=== PATIENT | male | born 1945 | race Caucasian/White ===

== ENCOUNTER 2018-09-11 20:27 | Inpatient (IN) | payer MEDICARE ==
[~2018-09-11] VITALS: Ht 177.8 cm; Wt 85.7 kg
[2018-09-11] MEDS ORDERED: SODIUM CHLORIDE 0.9% 500 ML IV ONE (21:14)
[2018-09-11] MEDS ORDERED: MORPHINE SULFATE 4 MG/ML CPJ (NOT FOR IM USE) IV ONE (21:15)
[2018-09-11] MEDS ORDERED: ONDANSETRON HCL 4MG/2ML INJ IV ONE (21:15)
[2018-09-11 21:21] LABS: BASOPHILS % 0.5 % (0.0-2.0); EOSINOPHILS % 1.2 % (0.0-5.0); HEMATOCRIT. 31.8 % (42.0-52.0); HEMOGLOBIN. 11.1 g/dL (14.0-18.0); LYMPHOCYTES % 8.7 % (20.0-50.0); MEAN CORPUSCULAR HEMOGLOBIN 32.1 pg (28.0-32.0); MEAN PLATELET VOLUME 8.1 fl (7.4-10.4); NEUTROPHILS % 87.6 % (40.0-76.0); PLATELET 123 x1000/uL (130-400); RED BLOOD CELL COUNT 3.46 mill/uL (4.7-6.1); RED CELL DISTRIBUTION WIDTH 12.6 % (11.6-14.6)
[2018-09-11 21:25] LABS: CHLORIDE 103 mEq/L (98-107)
[2018-09-11 21:30] LABS: INR 1.1; PARTIAL THROMBOPLASTIN TIME 27.2 sec (23.4-31.0); PROTHROMBIN TIME 10.9 sec (9.6-11.0)
[2018-09-11 22:43] LABS: CLARITY URINE CLEAR (CLEAR); COLOR URINE YELLOW (YELLOW); KETONES URINE NEGATIVE (NEGATIVE); LEUKOCYTE ESTERASE URINE NEGATIVE (NEGATIVE); NITRITE URINE NEGATIVE (NEGATIVE); OCCULT BLOOD URINE NEGATIVE (NEGATIVE); PROTEIN URINE 2+ (NEGATIVE); SPECIFIC GRAVITY URINE 1.016 (1.005-1.030); UROBILINOGEN URINE 0.2 E.U./dL (0.2-1.0)
[2018-09-12 01:20] VITALS: BP 154/68
[2018-09-12 04:00] VITALS: BP 158/65
[2018-09-12 08:00] VITALS: BP 147/55
[2018-09-12] MEDS ORDERED: ENOXAPARIN 40MG/0.4ML SYR SUBCUT SCH (08:00)
[2018-09-12] MEDS ORDERED: SODIUM CHLORIDE 0.9% 1,000 ML IV SCH (08:33)
[2018-09-12] MEDS ORDERED: CLONIDINE 0.1MG TABLET PO PRN (08:45)
[2018-09-12] MEDS ORDERED: ONDANSETRON HCL 4MG/2ML INJ IV PRN (08:45)
[2018-09-12] MEDS ORDERED: DOCUSATE SODIUM 100MG CAPSULE PO PRN (08:45)
[2018-09-12] MEDS ORDERED: LORAZEPAM 0.5MG TABLET PO PRN (08:45)
[2018-09-12] MEDS ORDERED: HYDROCODONE/ACETAMINOPHEN 5/325MG TABLET PO PRN (08:45)
[2018-09-12] MEDS ORDERED: IPRATROPIUM/ALBUTEROL 0.5-3(2.5)MG/3ML NEB INH PRN (08:45)
[2018-09-12] MEDS ORDERED: ACETAMINOPHEN 325MG TABLET PO PRN (08:45)
[2018-09-12] MEDS ORDERED: FOLIC ACID 1MG TABLET PO SCH (09:00)
[2018-09-12] MEDS ORDERED: LOSARTAN POTASSIUM 50 MG TABLET PO SCH (11:00)
[2018-09-12 11:06] LABS: BASOPHILS % 0.8 % (0.0-2.0); EOSINOPHILS % 3.8 % (0.0-5.0); HEMATOCRIT. 29.3 % (42.0-52.0); HEMOGLOBIN. 10.2 g/dL (14.0-18.0); MEAN CORPUSCULAR HEMOGLOBIN 32.1 pg (28.0-32.0); MEAN CORPUSCULAR VOLUME 92.3 fL (80.0-94.0); MEAN PLATELET VOLUME 8.2 fl (7.4-10.4); MONOCYTES % 7.9 % (2.0-8.0); NEUTROPHILS % 48.5 % (40.0-76.0); PLATELET 119 x1000/uL (130-400); RED BLOOD CELL COUNT 3.17 mill/uL (4.7-6.1); RED CELL DISTRIBUTION WIDTH 12.8 % (11.6-14.6)
[2018-09-12 11:18] LABS: CREATINE KINASE 79 IU/L (39-308)
[2018-09-12 11:19] LABS: CREATINE KINASE MB FRACTION 1.6 ng/mL (0.5-3.6)
[2018-09-12 11:44] LABS: CHLORIDE 103 mEq/L (98-107)
[2018-09-12 11:52] LABS: LDL CHOLESTEROL 39 mg/dL (5-100)
[2018-09-12 11:54] LABS: HDL CHOLESTEROL 49 mg/dL (40-59)
[2018-09-12 12:00] VITALS: BP 149/85
[2018-09-12 13:14] VITALS: BP 149/85
[2018-09-12 14:11] LABS: *AMPHETAMINES SCREEN URINE NEGATIVE (NEGATIVE); *BARBITURATES SCREEN URINE NEGATIVE (NEGATIVE); *BENZODIAZEPINES SCREEN URINE NEGATIVE (NEGATIVE); *COCAINE SCREEN URINE NEGATIVE (NEGATIVE); CANNABINOID URINE SCREEN NEGATIVE (NEGATIVE); PHENCYCLIDINE URINE SCREEN NEGATIVE (NEGATIVE)
[2018-09-12 14:12] LABS: METHADONE URINE SCREEN NEGATIVE (NEGATIVE); OPIATES URINE SCREEN NEGATIVE (NEGATIVE)
== END 2018-09-12 15:36 | disposition home or self-care (01) | DRG 315 ==
LOC: ER 20:27 → EDBEDREQ 23:07 → EDBEDREQTM 23:07 → ENRESERV 23:34 → 8WST 09-12 00:34
PROVIDERS: ADMIT Internal Medicine; ATTEND Internal Medicine
DX: I95.89 Other hypotension (principal); L03.115 Cellulitis of right lower limb; D64.9 Anemia, unspecified; D69.6 Thrombocytopenia, unspecified; E11.22 Type 2 diabetes mellitus with diabetic chronic kidney disease; E11.621 Type 2 diabetes mellitus with foot ulcer; I12.9 Hypertensive chronic kidney disease with stage 1 through stage 4 chronic kidney disease, or unspecified chronic kidney disease; I44.7 Left bundle-branch block, unspecified; R74.0 Nonspecific elevation of levels of transaminase and lactic acid dehydrogenase [LDH]; N18.2 Chronic kidney disease, stage 2 (mild); L97.529 Non-pressure chronic ulcer of other part of left foot with unspecified severity; J44.9 Chronic obstructive pulmonary disease, unspecified; Z79.4 Long term (current) use of insulin; Z87.891 Personal history of nicotine dependence; Z90.49 Acquired absence of other specified parts of digestive tract
CPT/HCPCS: 36415; 71045; 80061; 80305; 82550; 82553; 82962; 83880; 84443; 84484; 93005; 93306; 96360; 99285; J1650; J2270; J2405; J7030; J7040